=== PATIENT | male | born 1990 | race Two or more races ===

== ENCOUNTER 2021-04-09 18:49 | Emergency (ER) | payer MEDICAID, OTHER ==
[~2021-04-09] VITALS: Ht 188 cm; Wt 80.7 kg
[2021-04-10] MEDS ORDERED: TETRACAINE HCL 0.5% OPTH(EYE) SOLN 4ML EACHEYE ONE (03:15)
[2021-04-10] MEDS ORDERED: FLUORESCEIN SOD OPTH TEST STRIP EACHEYE ONE (03:15)
[2021-04-10 03:50] VITALS: BP 129/80
== END 2021-04-10 04:02 | disposition home or self-care (01) ==
LOC: ER 18:49
DX: T15.91XA Foreign body on external eye, part unspecified, right eye, initial encounter (principal); X58.XXXA Exposure to other specified factors, initial encounter; Y93.89 Activity, other specified; Y92.89 Other specified places as the place of occurrence of the external cause; Y99.8 Other external cause status

== ENCOUNTER 2023-08-21 15:58 | Emergency (ER) | payer MEDICAID ==
[~2023-08-21] VITALS: Ht 188 cm; Wt 79.1 kg
[2023-08-21 16:01] VITALS: BP 124/69; PULSE 68; RESP 20; O2SAT 100
[2023-08-21] MEDS ORDERED: IBUPROFEN 800 MG TAB PO ONE (16:30)
[2023-08-21] MEDS ORDERED: IBUP-1456 PO (17:17)
[2023-08-21] MEDS ORDERED: HYDR-4902 PO (17:17)
== END 2023-08-21 17:18 | disposition left against medical advice (07) ==
LOC: ER 15:58
DX: R07.81 Pleurodynia (principal); M54.2 Cervicalgia; V43.52XA Car driver injured in collision with other type car in traffic accident, initial encounter; Y93.89 Activity, other specified; Y92.488 Other paved roadways as the place of occurrence of the external cause; Y99.8 Other external cause status
CPT/HCPCS: 70450; 71250; 72125